=== PATIENT | female | born 1960 | race Hispanic/Latino ===

== ENCOUNTER 2017-03-10 16:07 | Emergency (ER) | payer OTHER ==
[2017-03-10 16:29] VITALS: TEMP 98.2
[2017-03-10 16:46] VITALS: BMI 36.6
[2017-03-10] MEDS ORDERED: Sodium Chloride 0.9% 1,000 ML IV STA (17:12)
[2017-03-10] MEDS ORDERED: Insulin Regular 1 UNITS/0.01 ML ML IV STA ×2 (17:12→19:01)
[2017-03-10] MEDS ORDERED: Insulin Regular 1 UNITS/0.01 ML ML SC STA (17:13)
[2017-03-10 17:37] LABS: ADD MANUAL DIFF? NO
[2017-03-10 17:49] LABS: BASO # 0.02 K/mm3 (0.0-2.0); BASO % 0.2 % (0.0-3.0); EOS # 0.1 (0.0-0.7); EOS % 0.8 % (1.5-5.0); GRAN # 6.03 (1.4-6.5); GRAN % 69.2 % (50.0-68.0); HEMATOCRIT 34.1 % (36.0-48.0); LYMPH # 1.9 (1.2-3.4); LYMPH % 21.8 % (22.0-35.0); MEAN CELL VOLUME 83.8 fL (80.0-105.0); MEAN CORPUSCULAR HGB CONC 33.4 g/dl (31.0-37.0); MEAN PLATELET VOLUME 11.4 fl (7.0-11.0); MONO # 0.7 (0.1-0.6); PLATELET COUNT 255 10^3/uL (120.0-450.0); RED CELL DISTRIBUTION WIDTH 12.6 % (11.5-14.5); WHITE BLOOD COUNT 8.7 10^3/ul (4.5-11.0)
[2017-03-10 18:00] LABS: ALB/GLOB RATIO 1.5 (1.1-1.8); ALKALINE PHOSPHATASE 79 U/L (38-133); ALT/SGPT 30 U/L (7-56); AST/SGOT 30 U/L (15-39); BILIRUBIN,TOTAL 0.6 mg/dL (0.2-1.3); BLOOD UREA NITROGEN 26 mg/dL (7-21); CALCIUM 9.7 mg/dL (8.4-10.5); CARBON DIOXIDE 30 mmol/L (21-33); CHLORIDE 89 mmol/L (95-110); GFR AFRICAN-AMERICAN > 60; POTASSIUM 3.8 mmol/L (3.6-5.0); SODIUM 130 mmol/L (132-148); TOTAL PROTEIN 7.7 g/dL (5.8-8.3)
[2017-03-10 18:12] LABS: GLUCOSE,RANDOM 534 mg/dL (70-110)
[2017-03-10 19:19] LABS: VENOUS BLOOD GAS BASE EXCESS 6.9 mmol/L (0.0-2.0); VENOUS BLOOD PH 7.37 (7.32-7.43)
[2017-03-10 20:47] VITALS: BP 147/71; PULSE 94; RESP 16; O2SAT 99
--- NOTE | 2017-03-10 21:26 | ED PDOC ---
Arrival/HPI - General Chief Complaint: High Blood Sugar Time Seen by Provider: 03/10/17 16:38 Historian: Patient - History of Present Illness Narrative History of Present Illness (Text): 03/10/17 21:53 56 yo F w/ pmh of DM and HTN, presents for elevated blood sugar of 500. Has no other complaints. Patient states that her pmd recently Rx her a new oral DM medication which is a combination of avandia and metformin, states that she took the medication for 5 days and could not tolerate the side effects, hence discontinued taking it on her own and did not notify her pmd yet. She reports not taking any medication x 5 days. States that she feels well otherwise, denies polyphagia, polydipsia, polyphagia, fever, chills, headache, dizziness, CP, SOB, abdominal pain, N/V/D or urinary symptoms. PMD [place] Past Medical History - Provider Review Nursing Documentation Reviewed: Yes - Infectious Disease Hx of Infectious Diseases: None - Tetanus Immunization Tetanus Immunization: Unknown - Reproductive Menopause: Yes - Cardiac Hx Cardiac Disorders: Yes Hx HI: Yes Hx Hypertension: Yes - Pulmonary Hx Respiratory Disorders: No - Neurological Hx Neurological Disorder: Yes Hx Vertigo: Yes Other/Comment: Neuropathy - HEENT Hx HEENT Disorder: No - Renal Hx Renal Disorder: No - Endocrine/Metabolic Hx Endocrine Disorders: Yes Hx Diabetes Mellitus Type 2: Yes - Hematological/Oncological Hx Blood Disorders: No - Integumentary Hx Dermatological Disorder: No - Musculoskeletal/Rheumatological Hx Musculoskeletal Disorders: Yes Hx Osteoarthritis: Yes (R Knee & R Elbow) - Gastrointestinal Hx Gastrointestinal Disorders: No - Genitourinary/Gynecological Hx Genitourinary Disorders: No - Psychiatric Hx Psychophysiologic Disorder: No Hx Substance Use: No - Surgical History Hx Cardiac Catheterization: Yes Hx Gastric Bypass Surgery: No Other/Comment: Triple Bypass Surgery 2012 - Anesthesia Hx Anesthesia: Yes Hx Anesthesia Reactions: No Hx Malignant Hyperthermia: No - Suicidal Assessment Feels Threatened In Home Enviroment: No Family/Social History - Physician Review Nursing Documentation Reviewed: Yes Family/Social History: No Known Family HX Smoking Status: Never Smoked Hx Alcohol Use: Yes Frequency of alcohol use: Socially Hx Substance Use: No Hx Substance Use Treatment: No Allergies/Home Meds Allergies/Adverse Reactions: Allergies clindamycin Allergy (Verified 03/10/17 16:56) RASH cortisone Allergy (Verified 03/10/17 16:56) RASH Home Medications: Home Meds Medication Instructions Recorded Confirmed Celecoxib [Celebrex] 200 mg PO DAILY 03/10/17 03/10/17 Gabapentin [Neurontin] 100 mg PO BID 03/10/17 03/10/17 Glimepiride [amaRYL] 2 mg PO BID 03/10/17 03/10/17 Simvastatin [Zocor] 20 mg PO DAILY 03/10/17 03/10/17 metOLazone [Zaroxolyn] 2.5 mg PO DAILY 03/10/17 03/10/17 Review of Systems - Review of Systems Constitutional: Normal, Fatigue. absent: Weight Change, Fevers Respiratory: Normal. absent: SOB, Cough, Sputum Cardiovascular: Normal. absent: Chest Pain, Palpitations, Edema Musculoskeletal: Normal. absent: Arthralgias, Back Pain, Neck Pain Skin: Normal. absent: Rash, Pruritis, Skin Lesions Neurological: Normal. absent: Headache, Dizziness, Focal Weakness Physical Exam Vital Signs Reviewed: Yes Vital Signs Temp Pulse Resp BP Pulse Ox 03/10/17 20:30 94 H 16 147/71 99 03/10/17 18:15 97 H 18 161/73 H 100 03/10/17 16:10 98.2 F 102 H 18 145/69 100 Temperature: Afebrile Blood Pressure: Normal Pulse: Regular Respiratory Rate: Normal Appearance: Positive for: Well-Appearing, Non-Toxic, Comfortable Pain Distress: None Mental Status: Positive for: Alert and Oriented X 3 Finger Stick Blood Glucose: 253 - Systems Exam Head: Present: Atraumatic, Normocephalic Pupils: Present: PERRL Extroacular Muscles: Present: EOMI Conjunctiva: Present: Normal Mouth: Present: Moist Mucous Membranes Pharnyx: Present: Normal. No: ERYTHEMA, EXUDATE Neck: Present: Normal Range of Motion. No: MIDLINE TENDERNESS Respiratory/Chest: Present: Clear to Auscultation, Good Air Exchange. No: Respiratory Distress, Accessory Muscle Use, Wheezes, Rales, Rhonchi Cardiovascular: Present: Regular Rate and Rhythm, Normal S1, S2. No: Murmurs Abdomen: Present: Normal Bowel Sounds. No: Tenderness, Distention, Peritoneal Signs, Rebound, Guarding Upper Extremity: Present: Normal Inspection, Normal ROM, NORMAL PULSES, Neurovascularly Intact, Capillary Refill < 2s. No: Edema, Tenderness Lower Extremity: Present: Normal Inspection, NORMAL PULSES, Capillary Refill < 2 s. No: Edema, Tenderness, Swelling, Deformity Neurological: Present: GCS=15, CN II-XII Intact, Speech Normal, Motor Func Grossly Intact, Normal Sensory Function Skin: Present: Warm, Dry, Rashes. No: Normal Color Psychiatric: Present: Alert, Oriented x 3, Normal Insight, Normal Concentration Medical Decision Making ED Course and Treatment: 03/10/17 21:26 56 yo F w/ pmh of DM and HTN, presents for elevated blood sugar of 500. Has no other complaints, to r/o DKA, nonketotic hyperglycemia, hyperglycemia due to uncontrolled DM. Plan: - Labs - EKG - IV insulin 10 units - SC insulin 10 units - NS bolus 1 L After IV insulin was administered, FS was 445. Labs reviewed, Na is 130, Cl 81, normal anion gap. NS bolus 1 L still infusing. Second IV insulin 8 units IV administered. Repeat FS 285. Lab results discussed with the patient in great detail. On re-evaluation, patient states that she feels well and has no complaints at this time. Denies any dizziness, chest pain, SOB, abdominal pain, or nausea. PE is unchanged and VSS. Patient states that she would prefer to be discharged and wants to follow up with her pmd tomorrow. Case discussed with Dr. Morrison, is agreeable for the patient to be d/c as long as pt follows up in her office tomorrow without fail. Request that the patient be Rx glyburide 10 mg po and metformin 1000 mg BID. Further plan of care discussed with the patient in great detail and she agrees with current plan. Metformin 1000 mg po ordered. Patient advised to have a small dinner tonight and prior to going to bed to check her fingerstick, was advised that if her fingerstick is less than 150 to have a small snack prior to going to bed. Instructed to check her FS in the AM prior to having breakfast. 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 Patient states she fully agrees with and understands discharge instructions. States that she agrees with the plan and disposition. Verbalized and repeated discharge instructions and plan. I have given the patient opportunity to ask any additional questions. Follow up with primary care physician tomorrow without fail. Advised to take medication as prescribed. Return to the emergency room at any time for any new or worsening symptoms. - Lab Interpretations Lab Results: 03/10/17 17:25 03/10/17 17:25 Lab Results 03/10/17 20:41: POC Glucose (mg/dL) 253 H 03/10/17 19:52: POC Glucose (mg/dL) 285 H 03/10/17 18:33: pO2 37, VBG pH 7.37, VBG pCO2 59.0, VBG HCO3 34.1 H, VBG Total CO2 35.9 H, VBG O2 Sat (Calc) 71.0 H, VBG Base Excess 6.9 H, VBG Potassium 4.2, Glucose 445 H*, Lactate 1.6, FiO2 21.0, Sodium 135.0, Chloride 96.0 L, Venous Blood Potassium 4.2 03/10/17 18:24: POC Glucose (mg/dL) 445 H* 03/10/17 17:25: Sodium 130 L, Potassium 3.8, Chloride 89 L, Carbon Dioxide 30, Anion Gap 15, BUN 26 H, Creatinine 0.7, Est GFR ( Amer) > 60, Est GFR ( Non-Af Amer) > 60, Random Glucose 534 H* D, Calcium 9.7, Total Bilirubin 0.6, AST 30, ALT 30, Alkaline Phosphatase 79, Total Protein 7.7, Albumin 4.6, Globulin 3.1, Albumin/Globulin Ratio 1.5 03/10/17 17:25: WBC 8.7 D, RBC 4.07, Hgb 11.4 L, Hct 34.1 L, MCV 83.8, MCH 28.0 , MCHC 33.4, RDW 12.6, Plt Count 255, MPV 11.4 H, Gran % 69.2 H, Lymph % (Auto) 21.8 L, [place] % (Auto) 8.0 H, Eos % (Auto) 0.8 L, Baso % (Auto) 0.2, Gran # 6.03 , Lymph # 1.9, [place] # 0.7 H, Eos # 0.1, Baso # 0.02 03/10/17 16:27: POC Glucose (mg/dL) > 500 H* - Medication Orders Current Medication Orders: Discontinued Medications Sodium Chloride (Sodium Chloride 0.9%) 1,000 mls @ 1,000 mls/hr IV .Q1H STA Stop: 03/10/17 18:11 Last Admin: 03/10/17 18:06 Dose: 1,000 mls/hr Insulin Human Regular (Humulin R) 10 units IV STAT STA Stop: 03/10/17 17:13 Last Admin: 03/10/17 18:06 Dose: 10 units Insulin Human Regular (Humulin R) 10 units SC STAT STA Stop: 03/10/17 17:14 Last Admin: 03/10/17 18:59 Dose: 10 units Insulin Human Regular (Humulin R) 8 units IV STAT STA Stop: 03/10/17 19:02 Last Admin: 03/10/17 19:16 Dose: 8 units Metformin HCl (Glucophage) 1,000 mg PO STAT STA Stop: 03/10/17 21:20 Last Admin: 03/10/17 22:23 Dose: 1,000 mg - PA / [employer] / Resident Statement /DO has reviewed & agrees with the documentation as recorded. Disposition/Present on Arrival - Present on Arrival Any Indicators Present on Arrival: No History of DVT/PE: No History of Uncontrolled Diabetes: No Urinary Catheter: No History of Decub. Ulcer: No History Surgical Site Infection Following: None - Disposition Have Diagnosis and Disposition been Completed?: Yes Diagnosis: Hyperglycemia Disposition: HOME/ ROUTINE Disposition Time: 21:21 Patient Plan: Discharge Condition: STABLE Discharge Instructions (ExitCare): Diabetic Hyperglycemia (ED) Print Language: TOGOLESE Additional Instructions: Have a small meal tonight, check your FS before going to bed (if FS is <150), have a small snack. Check your FS in the morning before breakfast, and start taking glyburide and metformin tomorrow. See Dr. Morrison tomorrow without fail. Return to the ER at any time for any new or worsening symptoms. Prescriptions: Celecoxib [CeleBREX] 200 mg PO DAILY #30 cap glyBURIDE [Glyburide] 10 mg PO DAILY #30 tab Ibuprofen [Motrin Tab] 800 mg PO TID PRN #20 tab PRN Reason: Pain, Moderate (4-7) MetFORMIN [glucOPHAGE] 1,000 mg PO BID #60 tab Referrals: Rock Morrison MD [Primary Care Provider] - Follow up with primary
--- NOTE | 2017-03-11 11:28 | CARD ---
APPROVED REPORT EKG Measurement Heart [id number] <Conclusion> Normal sinus rhythm Possible Left atrial enlargement Anterior infarct, age undetermined T wave abnormality, consider inferior ischemia Abnormal ECG
== END 2017-03-10 22:23 | disposition home or self-care (01) ==
LOC: ED 16:07
DX: E11.65 Type 2 diabetes mellitus with hyperglycemia (principal); I10 Essential (primary) hypertension; I25.2 Old myocardial infarction; Z79.84 Long term (current) use of oral hypoglycemic drugs
CPT/HCPCS: 80053; 82803; 82948; 85025; 87086; 93005; 96360; 96372; 99284; J7040

== ENCOUNTER 2017-10-20 08:08 | Observation (INO) | payer BC ==
[2017-10-20 08:08] VITALS: BMI 36.6
--- NOTE | 2017-10-20 08:22 | ED PDOC ---
Arrival/HPI - General Chief Complaint: Chest Pain Time Seen by Provider: 10/20/17 08:09 Historian: Patient - History of Present Illness Narrative History of Present Illness (Text): 10/20/17 08:15 Lawanda Moore is a 57 year old female, whose past medical history includes hypertension, SC, diabetes, and cardiac catheterization, who presents to the emergency department complaining of intermittent chest pain in the past few weeks. Patient describes it as heaviness on her chest and notes taking a full dose of Aspirin prior to arrival. Patient is due for out-patient stress test. Patient denies headache, fever, chills, cough, back pain, nausea, vomiting, diarrhea, abdominal pain, lower extremity pain/swelling, recent travel, or other complaints. Time/Duration: > week Symptom Onset: Sudden Symptom Course: Intermittent Quality: Other (heaviness) Context: Home Past Medical History - Provider Review Nursing Documentation Reviewed: Yes - Infectious Disease Hx of Infectious Diseases: None - Tetanus Immunization Tetanus Immunization: Unknown - Cardiac Hx Cardiac Disorders: Yes Hx SC: Yes Hx Hypertension: Yes - Pulmonary Hx Respiratory Disorders: No - Neurological Hx Neurological Disorder: Yes Hx Vertigo: Yes Other/Comment: Neuropathy - HEENT Hx HEENT Disorder: No - Renal Hx Renal Disorder: No - Endocrine/Metabolic Hx Endocrine Disorders: Yes Hx Diabetes Mellitus Type 2: Yes - Hematological/Oncological Hx Blood Disorders: No - Integumentary Hx Dermatological Disorder: No - Musculoskeletal/Rheumatological Hx Musculoskeletal Disorders: Yes Hx Osteoarthritis: Yes (R Knee & R Elbow) - Gastrointestinal Hx Gastrointestinal Disorders: No - Genitourinary/Gynecological Hx Genitourinary Disorders: No - Psychiatric Hx Psychophysiologic Disorder: No Hx Substance Use: No - Surgical History Hx Cardiac Catheterization: Yes Hx Gastric Bypass Surgery: No Other/Comment: Triple Bypass Surgery 2012 - Anesthesia Hx Anesthesia: Yes Hx Anesthesia Reactions: No Hx Malignant Hyperthermia: No - Suicidal Assessment Feels Threatened In Home Enviroment: No Family/Social History - Physician Review Nursing Documentation Reviewed: Yes Family/Social History: Unknown Family HX Smoking Status: Never Smoked Hx Alcohol Use: Yes Hx Substance Use: No Hx Substance Use Treatment: No Allergies/Home Meds Allergies/Adverse Reactions: Allergies clindamycin Allergy (Verified 10/20/17 12:09) RASH cortisone Allergy (Verified 10/20/17 12:09) RASH Home Medications: Home Meds Medication Instructions Recorded Confirmed Celecoxib [Celebrex] 200 mg PO DAILY 10/20/17 10/20/17 Furosemide [Lasix] 40 mg PO DAILY 10/20/17 10/20/17 Gabapentin [Neurontin] 200 mg PO BID 10/20/17 10/20/17 Losartan [Cozaar] 100 mg PO DAILY 10/20/17 10/20/17 Metoclopramide [Reglan] 10 mg PO TID PRN 10/20/17 10/20/17 Simvastatin [Zocor] 20 mg PO HS 10/20/17 10/20/17 Review of Systems - Physician Review All systems were reviewed & negative as marked: Yes - Review of Systems Constitutional: absent: Fevers Respiratory: absent: SOB Cardiovascular: Chest Pain ("heaviness") Physical Exam Vital Signs Reviewed: Yes Vital Signs Temp Pulse Pulse Resp BP BP Pulse Ox 10/20/17 15:13 85 18 121/61 98 10/20/17 14:51 98.0 F 81 16 138/76 10/20/17 13:33 98.0 F 81 18 138/76 99 10/20/17 08:23 97.9 F 83 16 140/71 100 10/20/17 08:21 89 140/71 Temperature: Afebrile Blood Pressure: Normal Pulse: Regular Respiratory Rate: Normal Appearance: Positive for: Well-Appearing, Non-Toxic, Comfortable Pain Distress: None Mental Status: Positive for: Alert and Oriented X 3 - Systems Exam Head: Present: Atraumatic, Normocephalic Pupils: Present: PERRL. No: Sluggish, Non-Reactive, Pinpoint, Other Extroacular Muscles: Present: EOMI Conjunctiva: Present: Normal Mouth: Present: Moist Mucous Membranes Neck: Present: Normal Range of Motion Respiratory/Chest: Present: Clear to Auscultation, Good Air Exchange. No: Respiratory Distress, Accessory Muscle Use, Wheezes, Rales, Retracting, Rhonchi Cardiovascular: Present: Regular Rate and Rhythm, Normal S1, S2. No: Murmurs Abdomen: Present: Normal Bowel Sounds. No: Tenderness, Distention, Peritoneal Signs, Rebound, Guarding Upper Extremity: Present: Normal Inspection. No: Cyanosis, Edema Lower Extremity: Present: Normal Inspection, NORMAL PULSES, Normal ROM, Neurovascularly Intact, Capillary Refill < 2 s. No: Edema, Cyanosis, Tenderness , Swelling, Erythema, Deformity Neurological: Present: GCS=15, CN II-XII Intact, Speech Normal Skin: Present: Warm, Dry, Normal Color. No: Rashes Psychiatric: Present: Alert, Oriented x 3, Normal Insight, Normal Concentration Medical Decision Making ED Course and Treatment: 10/20/17 Impression: 57 year old female with unremarkable physical exam complaining of intermittent chest pain described as heaviness. Plan: -- EKG -- Chest X-ray -- Labs -- Urinalysis -- Reassess and disposition Progress Notes: EKG: Ordered, reviewed, and independently interpreted the EKG. Rate : 90 BPM Rhythm : NSR Interpretation : No ST-segment elevations or depressions, no T-wave inversions, normal intervals. Comparison : No change 10/20/17 09:25 Patient is resting comfortably, is no longer having chest pain or shortness of breath after being administered with Nitroglycerin. Patient has no current risk factors. 10/20/17 09:40 Patient was accepted to telemetry. - Lab Interpretations Lab Results: 10/20/17 08:43 10/20/17 08:43 Lab Results 10/20/17 08:43: Sodium 141, Potassium 4.1, Chloride 100, Carbon Dioxide 27, Anion Gap 18, BUN 30 H, Creatinine 0.9, Est GFR ( Amer) > 60, Est GFR ( Non-Af Amer) > 60, Random Glucose 228 H, Calcium 10.9 H, Magnesium 1.8, Total Bilirubin 0.4, AST 25, ALT 30, Alkaline Phosphatase 60, Lactate Dehydrogenase 381, Total Creatine Kinase 57, Troponin I < 0.01, NT-Pro-B Natriuret Pep 177, Total Protein 7.4, Albumin 4.2, Globulin 3.1, Albumin/Globulin Ratio 1.3 10/20/17 08:43: PT 11.3, INR 0.98, APTT 26.2 10/20/17 08:43: WBC 6.4 D, RBC 3.74, Hgb 10.3 L, Hct 31.8 L, MCV 85.0, MCH 27.5 , MCHC 32.4, RDW 13.3, Plt Count 257, MPV 11.1 H, Gran % 67.0, Lymph % (Auto) 22.2, [place] % (Auto) 7.2 H, Eos % (Auto) 3.1, Baso % (Auto) 0.5, Gran # 4.31, Lymph # (Auto) 1.4, [place] # (Auto) 0.5, Eos # (Auto) 0.2, Baso # (Auto) 0.03 10/20/17 08:29: POC Glucose (mg/dL) 220 H I have reviewed the lab results: Yes - RAD Interpretation Radiology Orders: 10/20/17 08:18 CHEST PORTABLE [RAD] Stat Allied Health Professional: Radiologist - EKG Interpretation Interpreted by ED Physician: Yes Type: 12 lead EKG Comparison: Similar to previous EKG - Medication Orders Current Medication Orders: Acetaminophen (Tylenol 325mg Tab) 650 mg PO Q6H PRN PRN Reason: Fever >100.4 F Last Admin: 10/21/17 05:41 Dose: 650 mg MAR Pain/Vitals Document 10/21/17 05:41 [facility] (Rec: 10/21/17 05:41 [facility] [id number]) Presence of Pain Presence of Pain Yes Location Left, Right or Bilateral Bilateral Pain Location Body Site Hand Aspirin (Ecotrin) 81 mg PO DAILY [facility] Last Admin: 10/21/17 09:17 Dose: 81 mg Atorvastatin Calcium (Lipitor) 10 mg PO HS [facility] Last Admin: 10/20/17 21:18 Dose: 10 mg Enoxaparin Sodium (Lovenox) 90 mg SC 0600,1800 [facility] PRN Reason: Protocol Last Admin: 10/21/17 05:41 Dose: 90 mg Subcutaneous Administrations Document 10/21/17 05:41 [facility] (Rec: 10/21/17 05:41 [facility] [id number]) Charges for Administration # of Subcutaneous Administrations 1 Gabapentin (Neurontin) 200 mg PO BID [facility] PRN Reason: Protocol Last Admin: 10/21/17 09:17 Dose: 200 mg Behavioural Document 10/21/17 09:17 KE (Rec: 10/21/17 09:17 KE [id number]) Maintenance Maintenance Dose Yes Insulin Human Lispro (Humalog Low) 0 units SC ACHS [facility] PRN Reason: Protocol Last Admin: 10/21/17 12:09 Dose: Not Given Non-Admin Reason: Blood Sugar Parameter MAR Blood Glucose Document 10/21/17 12:09 TARSHA (Rec: 10/21/17 12:09 [facility] [id number]) Blood Glucose Finger Stick Blood Glucose (70-120) 292 Insulin Lispro Protam/Lispro Human (Humalog Mix 75/25) 30 units SC ACB [facility]AN[facility] Insulin Lispro Protam/Lispro Human (Humalog Mix 75/25) 20 units SC ACD [facility] Losartan Potassium (Cozaar) 100 mg PO DAILY [facility] Last Admin: 10/21/17 09:17 Dose: 100 mg Meloxicam (Mobic) 15 mg PO DAILY [facility] Last Admin: 10/21/17 09:17 Dose: 15 mg Discontinued Medications Acetaminophen/Butalbital/Caffeine (Fioricet) 2 tab PO STAT STA Stop: 10/21/17 12:13 Last Admin: 10/21/17 12:25 Dose: 2 tab MAR Pain Assessment Document 10/21/17 12:25 KE (Rec: 10/21/17 12:26 [facility] [id number]) Pain Reassessment Is this a pain reassessment? No Sleep Is patient sleeping during reassessment? No Presence of Pain Presence of Pain Yes Location Pain Location Body Curtain Mender Aspirin (Aspirin) 325 mg PO STAT STA Stop: 10/20/17 15:38 Last Admin: 10/20/17 15:42 Dose: Enoxaparin Sodium (Lovenox) 90 mg SC Q12 [facility] PRN Reason: Protocol Last Admin: 10/20/17 16:23 Dose: 90 mg Subcutaneous Administrations Document 10/20/17 16:23 [facility] (Rec: 10/20/17 16:23 KMS [place] [id number]) Injection Site MAR Injection Site Right Abdomen Charges for Administration # of Subcutaneous Administrations 1 Insulin Lispro Protam/Lispro Human (Humalog Mix 75/25) 15 units SC ACBD [facility] Insulin Lispro Protam/Lispro Human (Humalog Mix 75/25) 16 units SC ACD [facility] Last Admin: 10/20/17 16:39 Dose: 16 units MAR Blood Glucose Document 10/20/17 16:39 KMS (Rec: 10/20/17 16:40 KMS [place] [id number]) Blood Glucose Finger Stick Blood Glucose (70-120) 143 Subcutaneous Administrations Document 10/20/17 16:39 KMS (Rec: 10/20/17 16:40 KMS [place] [id number]) Injection Site MAR Injection Site Right Arm Charges for Administration # of Subcutaneous Administrations 1 Insulin Lispro Protam/Lispro Human (Humalog Mix 75/25) 26 units SC ACB [facility] Last Admin: 10/21/17 08:23 Dose: 26 units MAR Blood Glucose Document 10/21/17 08:23 (Rec: 10/21/17 08:23 [id number]) Blood Glucose Finger Stick Blood Glucose (70-120) 166 Subcutaneous Administrations Document 10/21/17 08:23 (Rec: 10/21/17 08:23 [id number]) Charges for Administration # of Subcutaneous Administrations 1 Meclizine HCl (Antivert) 25 mg PO STAT STA Stop: 10/21/17 12:07 Last Admin: 10/21/17 13:36 Dose: 25 mg Nitroglycerin (Nitrostat Sl Tab) 0.4 mg SL STAT STA Stop: 10/20/17 08:19 Last Admin: 10/20/17 08:53 Dose: 0.4 mg Pneumococcal Polyvalent Vaccine (Pneumovax 23 Vaccine) 0.5 ml IM .ONCE ONE Stop: 10/20/17 15:17 - Scribe Statement The provider has reviewed the documentation as recorded by the Scribe Rere Lobo Provider Scribe Attestation: All medical record entries made by the Scribe were at my direction and personally dictated by me. I have reviewed the chart and agree that the record accurately reflects my personal performance of the history, physical exam, medical decision making, and the department course for this patient. I have also personally directed, reviewed, and agree with the discharge instructions and disposition. Disposition/Present on Arrival - Present on Arrival Any Indicators Present on Arrival: No History of DVT/PE: No History of Uncontrolled Diabetes: No Urinary Catheter: No History Surgical Site Infection Following: None - Disposition Have Diagnosis and Disposition been Completed?: Yes Diagnosis: Chest pain Disposition: HOSPITALIZED Disposition Time: 11:00 Condition: STABLE
[2017-10-20 09:00] LABS: BASO # 0.03 K/mm3 (0.0-2.0); BASO % 0.5 % (0.0-3.0); EOS # 0.2 (0.0-0.7); EOS % 3.1 % (1.5-5.0); GRAN # 4.31 (1.4-6.5); HEMOGLOBIN 10.3 g/dL (12.0-16.0); LYMPH # 1.4 (1.2-3.4); LYMPH % 22.2 % (22.0-35.0); MEAN CORPUSCULAR HEMOGLOBIN 27.5 pg (25.0-35.0); MEAN CORPUSCULAR HGB CONC 32.4 g/dl (31.0-37.0); MEAN PLATELET VOLUME 11.1 fl (7.0-11.0); MONO # 0.5 (0.1-0.6); MONO % 7.2 % (1.0-6.0); RBC 3.74 10^6/uL (3.5-6.1); RED CELL DISTRIBUTION WIDTH 13.3 % (11.5-14.5); WHITE BLOOD COUNT 6.4 10^3/ul (4.5-11.0)
[2017-10-20 09:14] LABS: ALB/GLOB RATIO 1.3 (1.1-1.8); ALBUMIN 4.2 g/dL (3.0-4.8); ALT/SGPT 30 U/L (7-56); AST/SGOT 25 U/L (14-36); BLOOD UREA NITROGEN 30 mg/dL (7-21); CALCIUM 10.9 mg/dL (8.4-10.5); GFR AFRICAN-AMERICAN > 60; GFR NON-AFRICAN AMERICAN > 60; MAGNESIUM 1.8 mg/dL (1.7-2.2)
[2017-10-20 09:19] LABS: INR 0.98 (0.93-1.08); PARTIAL THROMBOPLASTIN TIME 26.2 Seconds (25.1-36.5); PROTHROMBIN TIME 11.3 SECONDS (9.4-12.5)
[2017-10-20 09:22] LABS: B-TYPE NATRIURETIC PEPTIDE 177 pg/mL (0-450); TROPONIN I < 0.01 ng/mL
--- NOTE | 2017-10-20 10:02 | RAD ---
HISTORY: cp COMPARISON: 12/25/2014 FINDINGS: LUNGS: No active pulmonary disease. PLEURA: No significant pleural effusion identified, no pneumothorax apparent. CARDIOVASCULAR: Normal heart size. Sternotomy wires. Possible CABG. OSSEOUS STRUCTURES: No significant abnormalities. VISUALIZED UPPER ABDOMEN: Normal. OTHER FINDINGS: None. IMPRESSION: No active disease.
[2017-10-20 10:06] LABS: URINE BILIRUBIN NEGATIVE (NEGATIVE); URINE BLOOD NEGATIVE (NEGATIVE); URINE GLUCOSE (UA) NEGATIVE (NEGATIVE); URINE LEUKOCYTE ESTERASE TRACE Leu/uL (NEGATIVE); URINE NITRATE NEGATIVE (NEGATIVE); URINE PROTEIN NEGATIVE mg/dL (<30 mg/dL); URINE UROBILINOGEN 0.2 E.U./dL (<1 E.U./dL)
[2017-10-20 10:07] LABS: URINE APPEARANCE CLEAR (CLEAR); URINE COLOR YELLOW (YELLOW)
[2017-10-20 10:15] LABS: URINE BACTERIA MANY (NEG); URINE RBC NEGATIVE /hpf (0-2)
[2017-10-20 15:14] VITALS: O2SAT 98
[2017-10-20] MEDS ORDERED: Pneumococcal 23-Valent Vaccine IM ONE (15:16)
[2017-10-20] MEDS ORDERED: Influenza Vaccine 60 mcg/0.5 mL SYR (4YR UP) IM ONE (15:16)
[2017-10-20] MEDS ORDERED: Enoxaparin 100 mg Syringe SC SCH (15:45)
[2017-10-20] MEDS: Insulin Lispro (humaLOG) LOW Coverage SC SCH ×2 (16:20→21:45)
[2017-10-20] MEDS ORDERED: Insulin Lispro (humaLOG) MIX 75/25(10 ml) SC SCH ×2 (16:30)
[2017-10-20 17:34] LABS: TROPONIN I < 0.01 ng/mL
--- NOTE | 2017-10-20 18:06 | CARD ---
APPROVED REPORT EKG Measurement Heart [id number] [place] [id number] <Conclusion> Normal sinus rhythm Nonspecific T wave abnormality Abnormal ECG
[2017-10-20 18:15] VITALS: RESP 20
--- NOTE | 2017-10-20 22:33 | HP ---
HISTORY OF PRESENT ILLNESS: The patient is 57 years old, who states for the last 2 to 3 days she is having chest pain, radiating to the left jaw and the left arm, associated with retrosternal discomfort. She was also having generalized weakness, bilateral arm pain, bilateral hand pain. Denies any fever or chills. No history of nausea or vomiting. No history of diarrhea. No hemoptysis. No hematemesis. The patient states the chest discomfort is like heaviness, something is sitting on her chest. PAST MEDICAL HISTORY: Significant for; 1. Uncontrolled diabetes. 2. Hypertension. 3. Hyperlipidemia. 4. Bilateral carpal tunnel syndrome. 5. Diabetic neuropathy. 6. Chronic back pain. 7. Cervical spasm, muscle spasm. PAST SURGICAL HISTORY: Significant for open heart surgery, had triple bypass in 2012. ALLERGIES: SHE IS ALLERGIC TO CLINDAMYCIN AND CORTISONE. MEDICATIONS AT HOME: Currently, she is taking Toujeo. She is on simvastatin 20 mg daily, metolazone 2.5 daily, Reglan 10 mg before meals p.r.n., Cozaar 100 mg daily, gabapentin 200 twice a day, Lasix 40 mg daily and Celebrex 200 daily. SOCIAL HISTORY: Denies smoking, drinking. She only socially drinks. REVIEW OF SYSTEMS: Significant for chest pressure, bilateral hand pains and left shoulder pain. PHYSICAL EXAMINATION: GENERAL: She is awake, alert, oriented, communicative. VITAL SIGNS: She is afebrile, pulse 81, respirations 16, blood pressure 138/76. LUNGS: Bilateral fair airflow. No rhonchi or crackle. HEART: S1 and S2 audible. ABDOMEN: Soft. Nontender. No rebound. No guarding. NEUROLOGICAL: The patient is awake, alert, oriented, communicative. EXTREMITIES: Bilateral leg, no edema. LABORATORY EXAM: WBC 6.4, hemoglobin 10.3, hematocrit 31.8, platelet 257. PT 11.3, INR 0.98. Chemistry: Sodium 141, potassium 4.1, chloride 100, CO2 of 27, BUN 13, creatinine 0.9, blood sugar of 142, calcium 10.9. LFTs are within normal limit. Troponin is 0.01. Urinalysis is unremarkable. X-ray chest is negative. ASSESSMENT: 1. Chest pain, noncardiac. 2. Uncontrolled diabetes. 3. Hypertension. 4. Hyperlipidemia. 5. Diabetic neuropathy. PLAN: The patient will be placed on observation. We will follow up cardiac enzymes. Monitor blood sugar. She has been started on aspirin 81 daily, Losartan 100 mg daily. Monitor her blood sugar. She was given Lovenox 90 mg subcu q. 12. She is on gabapentin. We will discuss with other quality compliance consultant. We will follow up the patient in a.m. Rock Morrison MD
--- NOTE | 2017-10-21 03:27 | CON ---
DATE: 10/20/2017 ENDOCRINOLOGY CONSULTATION LOCATION: In the ER holding, will be admitted to room 277. HISTORY OF PRESENT ILLNESS: This is a 57-year-old female with known history of type 2 diabetes, hypertension, presenting here with precordial chest pain and now undergoing cardiac workup for acute coronary syndrome and is also being referred now for diabetic evaluation and management. PAST MEDICAL HISTORY: As mentioned above, history of type 2 diabetes, currently on Amaryl given as 2 mg b.i.d. as ordered, history of hypertension and dyslipidemia, history of diabetic retinopathy and polyneuropathy. She also has significant cardiac vasculopathy with the previous myocardial infarction, and also a prior three-vessel coronary artery bypass graft surgery in 2011, history of peripheral arterial disease and vasculopathy. FAMILY HISTORY: Positive for diabetes and hypertension. SOCIAL HISTORY: Patient has a supportive family. No known substance use. REVIEW OF SYSTEMS: Admits to generalized body weakness with easy fatigability and tiredness with suboptimal energy level. Also admits to episodic dizziness and lightheadedness, worse on the day of admission. She also admits to precordial chest pain over the last week or so, but worse on the day of admission with episodic shortness of breath, especially on exertion. Her oral intake has been variable with nausea, dyspepsia and vague upper abdominal pain. PHYSICAL EXAMINATION: GENERAL: This is an overweight female, in no apparent distress. VITAL SIGNS: Blood pressure 140/80, pulse of 74 beats per minute - regular, temperature 98, respirations 20, height is 5 feet 2 inches, weight is 200 pounds. HEENT: Head is normocephalic. Eyes anicteric with pink conjunctivae. Funduscopy not possible at this time. Ears, nose, and throat are otherwise normal. NECK: Supple. Thyroid gland is normal in size. No carotid bruits or any cervical adenopathy. CARDIOPULMONARY: Some adynamic precordium. S1, S2 is rapid and regular. LUNGS: Clear to auscultation. ABDOMEN: Flat, soft, with positive bowel sounds. EXTREMITIES: No peripheral edema. Pulses are +2 bilaterally. LABORATORY DATA: Her chemistry showed a BUN of 30, sodium 141, potassium 4.1, chloride 100, CO2 27, glucose 228, and creatinine 0.9. ASSESSMENT: This is a 57-year-old female with uncontrolled and decompensated type 2 insulin-requiring diabetes, presenting here with acute coronary syndrome on the background of significant cardiac vasculopathy as noted. She also has diabetic microvascular complications of retinopathy and polyneuropathy with diabetic microvascular complications of coronary artery disease with the previous coronary artery bypass graft surgery and also underlying peripheral arterial disease and vasculopathy. PLAN OF MANAGEMENT: We will modify the coverage scale to a very low-dose algorithm using Humalog insulin as ordered. She has been started by the primary physician on a premixed insulin regimen, and so we will modify the regimen to a more physiologic dosing and increase the Humalog 75/25 to 26 units before breakfast and 16 units before dinner to start today. We will obtain a hemoglobin A1c to confirm her prior glycemic control, and baseline thyroid function studies and lipid panel will be ordered. We will initiate diabetic education to include insulin self-administration also at this time, and we will also initiate dietary evaluation for nutritional counseling and healthier food choices with weight loss efforts accordingly. We will follow with you. Thao Hill MD
[2017-10-21] MEDS: Enoxaparin 100 mg Syringe SC SCH ×2 (05:41→17:26)
[2017-10-21 07:14] LABS: ALB/GLOB RATIO 1.4 (1.1-1.8); ALBUMIN 4.1 g/dL (3.0-4.8); CALCIUM 10.5 mg/dL (8.4-10.5)
[2017-10-21] MEDS ORDERED: Insulin Lispro (humaLOG) MIX 75/25(10 ml) SC SCH ×2 (07:30→16:30)
[2017-10-21] MEDS: Insulin Lispro (humaLOG) LOW Coverage SC SCH ×3 (08:03→16:33)
--- NOTE | 2017-10-21 08:36 | CON ---
DATE: 10/20/2017 REASON FOR THE CONSULTATION: Cardiac evaluation, chest pain, rule out acute coronary artery syndrome, rule out unstable angina. BRIEF CLINICAL HISTORY: This is a 57-year-old obese woman with past medical history of diabetes, hypertension, hyperlipidemia, [place], history of coronary artery disease, CABG in 2012, three vessel bypass, who was recently having shortness of breath, WI, chest discomfort about 6 months, underneath the left breast, sharp pain sometimes, sometimes radiated to the left arm, sometimes radiated to the jaw, but no chest pain. Denies any chest pain on exertion, but it comes off and on while sitting, watching TV, but definitely complains of dyspnea on exertion; if patient even goes to the first floor with a bag of grocery, feels short winded. Patient has recently been seen by Dr. Candelaria and is scheduled to have a stress test as outpatient on 11/01. Since last 6 months had the same symptoms, no change in character, decided to come to the ER. PAST MEDICAL HISTORY: Significant for coronary artery disease, CABG in 2012, three vessels, at [facility] ([facility] by Dr. Sony Payton; diabetes; hypertension; hyperlipidemia. SOCIAL HISTORY: Denies smoking. Denies any history of alcohol abuse. CURRENT MEDICATIONS: Patient is taking simvastatin 20 mg, metolazone 2.5 mg, metoclopramide 10 mg, losartan 100 mg, gabapentin 100 mg, Lasix 40, Celebrex 200 mg daily. ALLERGIES: ALLERGY TO CLINDAMYCIN AND ALLERGY TO CORTISONE. REVIEW OF SYSTEMS: Negative except HPI, but also complained the patient has neuropathy in both hands, especially more in the right three fingers. PHYSICAL EXAMINATION: VITAL SIGNS: Temperature afebrile, heart rate 85, blood pressure 121/60. HEENT: PERRLA, intact. NECK: Supple. No carotid bruit or thyromegaly. CHEST: Clear to auscultation. HEART: S1 and S2 regular. ABDOMEN: Soft. EXTREMITIES: Clubbing and cyanosis, negative. LABORATORY DATA: Blood workup as follows: WBC 6.5, hemoglobin 10.3, hematocrit 31.8, platelet count 257. Chemistry shows sodium 141, potassium , chloride 100, carbon dioxide 27, anion gap of 18, BUN 30, creatinine 0.9. Troponin is 0.01 negative. EKG shows normal sinus, T-inversion in V5, V6. IMPRESSION: Atypical chest pain, but given the multiple risk factors for coronary artery disease, obesity, last hemoglobin A1c 12 and blood sugar runs at 200, history of coronary artery bypass graft, [id number] risk for acute coronary syndrome. RECOMMENDATION: We will add on first stat, another troponin at 2 o' clock and if it is negative, we will schedule a stress test as outpatient; if positive, we will consider cardiac catheterization. We will follow with you. We will give Lovenox and beta shelbi and aspirin. Thank you, Dr. Morrison, for providing opportunity in taking care of the patient, Lawanda Moore. We will follow with you. Zackery Martines MD
[2017-10-21] MEDS ORDERED: Apap-Butalbital-Caffeine 325-50-40mg Tab PO STA (12:12)
[2017-10-21 18:16] VITALS: BP 129/59; PULSE 82; TEMP 98.7
--- NOTE | 2017-10-22 02:56 | PN ---
DATE: ENDOCRINOLOGY FOLLOWUP LOCATION: In room 277. SUBJECTIVE: This is a 57-year-old female with recent uncontrolled type 2 insulin-requiring diabetes presenting here with precordial chest pain and undergoing cardiac workup for acute coronary syndrome, and is also being followed closely for metabolic management. Her glucose levels are fluctuating and ranging from 166 to 292 mg/dL. Her latest chemistry showed a BUN of 44, sodium 140, potassium 4.1, chloride 102, CO2 of 28, glucose 156, and creatinine 1.2. Her hemoglobin A1c is 11.2%, quite elevated, and indicative of suboptimal metabolic control of her diabetic condition on just taking the oral hypoglycemic therapy as noted. ASSESSMENT AND PLAN: So at this time, we will titrate and increase her premixed insulin regimen to optimize metabolic control. We will increase the Humulin 70/30 to 30 units before breakfast and 20 units before dinner to start today. We will continue the low-dose correction scale using regular insulin as given. We will obtain serial chemistries and supplement accordingly needed. We will follow. Thao Hill MD
[2017-10-22] MEDS ORDERED: Insulin Lispro (humaLOG) MIX 75/25(10 ml) SC SCH (07:30)
--- NOTE | 2017-10-22 12:09 | DS ---
HISTORY OF PRESENT ILLNESS: Patient is 57 years old, seen and examined. She states that her chest pain and left shoulder pain have improved. Complained of feeling dizzy and lightheaded. Also, complains of headache. PHYSICAL EXAMINATION: VITAL SIGNS: She is afebrile, pulse 82, respirations 20, blood pressure 129/59. LUNGS: Bilateral fair airflow. No rhonchi or crackle. HEART: S1 and S2 audible. ABDOMEN: Soft and nontender. No rebound. No guarding. NEUROLOGIC: Patient is awake, alert, oriented, able to communicate. LABORATORY DATA: Blood sugar is 186. ASSESSMENT AND PLAN: 1. Chest pain, noncardiac. 2. Uncontrolled hypertension. 3. Hyperlipidemia. 4. Carpal tunnel syndrome. 5. Generalized osteoarthritis. 6. Vertigo. PLAN: Patient was given meclizine and Fioricet with significant improvement. She is being discharged home. She was advised to discontinue her oral hypoglycemic and will be started on insulin 70/30 26 units in the morning and 18 units at bedtime and 10 units of Levemir at bedtime and 18 units before dinner time and she will monitor her blood sugar and we will follow up as outpatient. Rock Morrison MD
== END 2017-10-21 18:34 | disposition home or self-care (01) ==
LOC: ED 08:08 → ERH 09:33 → 2RSO 15:54
PROVIDERS: ADMIT Internal Medicine; ATTEND Internal Medicine
DX: R07.89 Other chest pain (principal); I10 Essential (primary) hypertension; I25.2 Old myocardial infarction; E78.5 Hyperlipidemia, unspecified; G56.03 Carpal tunnel syndrome, bilateral upper limbs; G89.29 Other chronic pain; M15.9 Polyosteoarthritis, unspecified; R42 Dizziness and giddiness; E11.319 Type 2 diabetes mellitus with unspecified diabetic retinopathy without macular edema; E11.42 Type 2 diabetes mellitus with diabetic polyneuropathy; Z79.4 Long term (current) use of insulin; I25.10 Atherosclerotic heart disease of native coronary artery without angina pectoris; Z95.1 Presence of aortocoronary bypass graft; E11.51 Type 2 diabetes mellitus with diabetic peripheral angiopathy without gangrene
CPT/HCPCS: 36415; 71045; 80053; 80061; 81001; 82550; 82948; 83036; 83615; 83735; 83880; 84443; 84484; 85025; 85610; 85730; 87086; 93005; 96372; 99283; G0378; J1650